=== PATIENT | male | born 1970 | race Caucasian/White ===

== ENCOUNTER 2020-07-18 09:34 | Emergency (ER) | payer OTHER, SELFPAY ==
[2020-07-18 09:41] VITALS: BP 147/84; PULSE 83; RESP 18; TEMP 36.9; O2SAT 99; BMI 25.8
[2020-07-18] MEDS: Lidocaine 4 % Patch ADH..PATCH 1 PATCH TRANSDERMA (10:03)
[2020-07-18] MEDS: Ketorolac Tromethamine 60 MG/2 ML VIAL IM (10:04)
--- NOTE | 2020-07-18 10:27 | ED_ITS ---
HPI - Back Pain/Injury General Chief Complaint: Back Pain/Injury Stated Complaint: BACK INJ WORK REALTED Time Seen by Provider: 07/18/20 09:55 Source: patient Mode of arrival: ambulatory Limitations: no limitations History of Present Illness HPI Narrative: 49-year-old male who reports to me that he has a history of some arthritis of the lumbar spine that has led to him to have some intermittent pain in his lower back on and off for years he has had a MRI otherwise no other surgeries or medical problems not currently taking any medications presenting ambulatory via triage from work where he was stooped over lifting a computer drive that was about 40-60 feel like a plugged sensation the right-sided lower back. States feels similar to her previous episodes he was advised to go to [facility] however they were not taking any appointments today according to the patient and was redirected to the emergency room. He denies any GI symptoms. Denies any fever chills. Denies any abdominal pain nausea vomiting. Denies any head neck pain. No chest pain shortness of breath. MD elicited complaint: back pain and back injury Pertinent past history: prior back pain Onset (ago): hour(s) Timing: intermittent Severity: mild Similar Symptoms Previously: Yes Quality: aching Location: lumbar spine Radiation: none Exacerbating factors: movement Relieving factors: immobilization Context: while lifting Associated symptoms: denies other symptoms Work related injury: Yes (Lifting box injury occurred today 07/18/2020) Related Data Previous Rx's Medication Instructions Recorded cyclobenzaprine 5 mg PO TID PRN #20 tab 07/18/20 ibuprofen 800 mg PO Q8H PRN #30 tab 07/18/20 Allergies Allergy/AdvReac Type Severity Reaction Status Date / Time No Known Allergies Allergy Verified 07/18/20 09:44 Review of Systems Review of Systems: Constitutional: No Weight loss, No Fever, No Chills, No Night Sweats, No Fatigue, No Malaise ENT/Mouth: No Hearing loss, No Ear Pain, No Nasal Congestion Eyes: No Eye Pain, No Swelling, No Redness, No Foreign Body, No Discharge, No Vision Changes Cardiovascular: No Chest Pain, No SOB, No Dyspnea on Exertion, No Orthopnea Respiratory: No Cough, No Sputum, No Wheezing Gastrointestinal: No Nausea, No Vomiting, No Diarrhea, No Constipation, No abdominal Pain Genitourinary: no irregular bleeding, No Dysuria, No Urinary Frequency, No Hematuria, No Urinary Incontinence, No Urgency, No Flank Pain, No Urinary Flow Changes, No Hesitancy Musculoskeletal: No joint pain, No Myalgias, No Joint Swelling, as noted in HPI Skin: No Skin Lesions, No rash Neuro: No Weakness, No Numbness, No Paresthesias, No Loss of Consciousness, No Dizziness, No Headache Psych: No Social Issues Heme/Lymph: No Bruising, No Bleeding,No Lymphadenopathy Endocrine: No Polyuria, No Polydipsia, No Temperature Intolerance Yes all other systems are reviewed and are negative [facility] Past Medical History Attestation statement: The following information was validated with the patient. Medical History (Updated 07/18/20 @ 10:29 by Neto Herr NP) No known health problems Social History Social History Advance Directives: No Advance Directives Information Provided: Yes Physical Exam Vital Signs: Vital Signs: Last Vital Signs Temp 98.4 F 07/18/20 09:41 Pulse 83 07/18/20 09:41 Resp 18 07/18/20 09:41 BP 147/84 H 07/18/20 09:41 Pulse Ox 99 07/18/20 09:41 Body Mass Index 25.8 Reviewed Const: General: cooperative and healthy appearing; No acute distress or intoxicated appearing Nutritional Appearance: average body habitus Orientation/consciousness: patient oriented x3 Neck: Neck: Yes normal visual inspection, No positive Brudzinski's sign, No positive Kernig's sign and No tender Thyroid: Thyroid normal Chest: Chest palpation & inspection: normal inspection of the chest Resp: Effort & Inspection: normal respiratory effort Cardio: Jugular venous distension: no JVD GI: Inspection: Yes normal to inspection Percussion: Yes normal to percussion Auscultation: normal bowel sounds : General: Yes no CVA tenderness Back/Spine/Pelvis: Back: no CVA tenderness Back/spine/pelvis image: 1. Mild tenderness palpation over the soft tissue. No midline to palpation. No step-off. Negative leg lift. Deep tendon reflex within normal limits. Skin: General skin exam: no rashes or lesions noted Neuro: General: patient oriented x3 Extrem: General: Yes normal to inspection Course Course Course Narrative: AP consistent with strain type injury to the right lower back paraspinal muscle of the lumbar region. No low back pain red flags. Feels better after Toradol and lidocaine patch. No need for imaging at this time as suspected injuries soft tissue and not osseous any etiology. Will discharge home with clear precaution return follow-up instructions. Will follow up with [facility] for clearance back to work. Stable for discharge. Patient is ambulatory with steady gait. Discharge Plan Discharge Clinical Impression: Strain of lumbar region Qualifiers: Encounter type: initial encounter Qualified Code(s): S39.012A - Strain of muscle, fascia and tendon of lower back, initial encounter Patient Disposition: Home, Self-Care Instructions: Low Back Strain (ED) Prescriptions: New cyclobenzaprine 10 mg tablet 5 mg PO TID PRN (Reason: muscle spasm) Qty: 20 RF: 0 ibuprofen 800 mg tablet 800 mg PO Q8H PRN (Reason: pain) Qty: 30 RF: 0 Referrals: Physician,Nonstaff [Primary Care Provider] - 2 days (Employee [facility]) Stand Alone Forms: Work/School Release Interventions: ED Discharge Assessment Last Done: 07/18/20 10:39 Discharge Date/Time: 07/18/20 10:39
== END 2020-07-18 10:39 | disposition home or self-care (01) ==
PROVIDERS: Emergency Provider Internal Medicine
DX: S39.012A Strain of muscle, fascia and tendon of lower back, initial encounter (principal); M54.6 Pain in thoracic spine; X50.0XXA Overexertion from strenuous movement or load, initial encounter; X50.3XXA Overexertion from repetitive movements, initial encounter; Y93.9 Activity, unspecified; Y92.9 Unspecified place or not applicable; Y99.0 Civilian activity done for income or pay; Z79.899 Other long term (current) drug therapy
CPT/HCPCS: 96372; 99283; 99284; J1885

== ENCOUNTER → 2020-07-21 10:38 | Outpatient (BNVA) | payer OTHER, SELFPAY | PROVIDERS: Visit Provider Physician Assistant Medical | DX: S39.012A Strain of muscle, fascia and tendon of lower back, initial encounter (principal); X50.0XXA Overexertion from strenuous movement or load, initial encounter | CPT/HCPCS: 99203 ==

== ENCOUNTER → 2020-07-28 10:56 | Outpatient (BNVA) | payer OTHER, SELFPAY | PROVIDERS: Visit Provider Physician Assistant Medical | DX: S39.012A Strain of muscle, fascia and tendon of lower back, initial encounter (principal); X58.XXXA Exposure to other specified factors, initial encounter; Y93.9 Activity, unspecified; Y92.9 Unspecified place or not applicable; Y99.8 Other external cause status | CPT/HCPCS: 99213 ==

== ENCOUNTER → 2020-08-04 11:38 | Outpatient (BNVA) | payer OTHER, SELFPAY | PROVIDERS: Visit Provider Physician Assistant Medical | DX: S39.012D Strain of muscle, fascia and tendon of lower back, subsequent encounter (principal); X58.XXXD Exposure to other specified factors, subsequent encounter | CPT/HCPCS: 99213 ==

== ENCOUNTER → 2020-08-11 10:48 | Outpatient (BNVA) | payer OTHER, SELFPAY | PROVIDERS: Visit Provider Physician Assistant Medical | DX: S39.012D Strain of muscle, fascia and tendon of lower back, subsequent encounter (principal); X58.XXXD Exposure to other specified factors, subsequent encounter | CPT/HCPCS: 99213 ==

== ENCOUNTER → 2020-08-18 11:10 | Outpatient (BNVA) | payer OTHER, SELFPAY | PROVIDERS: Visit Provider Physician Assistant Medical | DX: S39.012D Strain of muscle, fascia and tendon of lower back, subsequent encounter (principal); X58.XXXD Exposure to other specified factors, subsequent encounter | CPT/HCPCS: 99213 ==

== ENCOUNTER → 2020-09-01 10:52 | Outpatient (BNVA) | payer OTHER, SELFPAY | PROVIDERS: Visit Provider Physician Assistant Medical | DX: S39.012D Strain of muscle, fascia and tendon of lower back, subsequent encounter (principal); X58.XXXD Exposure to other specified factors, subsequent encounter | CPT/HCPCS: 72110; 99214 ==

== ENCOUNTER → 2020-09-15 11:37 | Outpatient (BNVA) | payer OTHER, SELFPAY | PROVIDERS: Visit Provider Physician Assistant Medical | DX: S39.012D Strain of muscle, fascia and tendon of lower back, subsequent encounter (principal); X58.XXXD Exposure to other specified factors, subsequent encounter | CPT/HCPCS: 99213 ==